=== PATIENT | female | born 1970 | race Caucasian/White ===

== ENCOUNTER 2020-05-17 10:32 | Outpatient (CLI) | payer OTHER, SELFPAY ==
--- NOTE | 2020-05-17 10:44 | MM_ITS ---
WS: [id number] BILATERAL DIGITAL SCREENING MAMMOGRAPHY WITH CAD CLINICAL INFORMATION: SCREENING HISTORY: Screening mammogram. No current complaints. COMPARISON: None. TECHNIQUE: Bilateral CC and MLO views. FINDINGS: Scattered fibroglandular densities bilaterally. No suspicious focal mass, asymmetry, calcifications, or architectural distortion. No evidence of malignancy. Vascular calcification. MM/[place] [id number] IMPRESSION: BI-RADS: 2-Benign FOLLOW UP: 1 Year Follow-up Recommend return to annual screening mammography.
== END 2020-05-17 10:33 | disposition home or self-care (01) ==
PROVIDERS: PCP Family Medicine; Visit Provider Family Medicine
DX: Z12.31 Encounter for screening mammogram for malignant neoplasm of breast (principal)
CPT/HCPCS: 77067

== ENCOUNTER 2021-06-08 09:28 | Outpatient (CLI) | payer OTHER, SELFPAY ==
--- NOTE | 2021-06-08 10:50 | XR_ITS ---
WS: [id number] Pelvis, 3 views, 06/08/2021 Clinical Data: MULTIPLE FX OF PELVIS W/STABLE DISRUPTION OF PELVIC RING Comparison: None. Findings: Internal fixation of pelvic fractures and dislocations have been performed. There are 2 transverse sc rews extending from the right iliac wing into the sacrum and one of them into the left iliac wing. Th ere is an oblique screw in the left superior ischiopubic ramus reducing an old fracture. There is an old fracture of the inferior left ischiopubic ramus. The hips are intact. The bladder is full. XR/XR pelvis min 3V [id number] Impression: 1. Internal fixation of sacroiliac joint disruption and left superior ischiopub ic fracture. 2. Old left inferior ischiopubic fracture.
== END 2021-06-08 09:29 | disposition home or self-care (01) ==
LOC: RAD 10:49
PROVIDERS: PCP Family Medicine; Visit Provider Orthopaedic Surgery
DX: S32.9XXA Fracture of unspecified parts of lumbosacral spine and pelvis, initial encounter for closed fracture (principal); X58.XXXA Exposure to other specified factors, initial encounter
CPT/HCPCS: 72190

== ENCOUNTER 2021-07-19 13:00 | Outpatient (CLI) | payer OTHER, SELFPAY ==
--- NOTE | 2021-07-19 13:11 | XR_ITS ---
WS: [id number] SCREENING DEXA SCAN [employer] CLINICAL INFORMATION: ASYMTOMATIC MENOPAUSAL STATE COMPARISON: None. FINDINGS: The L1-L4 bone mineral density measures 1.096 g/cm2. This corresponds to a T score score of -0.7 and Z score of -1.1. Left femoral neck bone mineral density measures 0.928 g/cm2. This corresponds to a T score of -0.6 an d Z score of -0.8. Right femoral neck bone mineral density measures 0.894 g/cm2. This corresponds to a T score -0.9of an d Z score of -1.1. Mean femoral neck bone mineral density measures 0.911 g/cm2. This corresponds to a T score of -0.8 an d Z score of -0.9. XR/XR DEXA axial skeleton* [id number] IMPRESSION: Normal bone mineralization. Patient's FRAX calculated 10 year probability for major osteoporotic fracture i s 9.0 % and osteoporotic hip fracture is 1.2%.
== END 2021-07-19 13:01 | disposition home or self-care (01) ==
PROVIDERS: PCP Family Medicine; Visit Provider Nurse Practitioner Family
DX: Z78.0 Asymptomatic menopausal state (principal)
CPT/HCPCS: 77080